=== PATIENT | female | born 2000 | race Caucasian/White ===

== ENCOUNTER → 2018-02-20 | Outpatient (CLI) | payer OTHER ==
--- NOTE | 2018-02-20 15:09 | DIAGNOSTIC IMAGING REPORT ---
MRI OF THE LUMBAR SPINE WITHOUT IV CONTRAST CLINICAL HISTORY: Right leg numbness. COMPARISON STUDY: No priors. TECHNIQUE: MRI of the lumbar spine is performed utilizing various T1 and T2-weighted sequences in the axial and sagittal planes. IV contrast was not administered for this examination. FINDINGS: Lumbar spine: Vertebral body height and alignment are maintained throughout the lumbar spine. Normal marrow signal intensity is preserved throughout the visualized bony structures. The transverse and spinous processes are intact. There is no evidence of spondylolysis. Intervertebral discs: Mild degenerative disc desiccation is seen at L4-L5. The remaining discs are normal in height and signal intensity. Spinal cord: The visualized spinal cord is normal in morphology and signal intensity. The conus medullaris terminates at the level of T12. The nerve roots of the cauda equina are normal in morphology. L1-L2: Unremarkable. L2-L3: Unremarkable. L3-L4: Unremarkable. L4-L5: There is minimal disc bulge eccentric to the right. This causes mild right-sided subarticular stenosis and likely abuts the exiting right L4 and the transiting right L5 nerve roots. The central canal and neural foramina are patent. L5-S1: Unremarkable. Sacrum: The partially imaged sacrum is normal in morphology and signal intensity. Soft tissues: The paraspinous soft tissues are normal in appearance. The partially imaged retroperitoneal structures are grossly unremarkable but incompletely assessed. IMPRESSION: 1. There is no disc herniation, central canal stenosis, or significant neural foraminal stenosis identified throughout the lumbar spine. 2. No osseous abnormality is identified. 3. Mild degenerative disc disease at L4-L5 which may abut the exiting right L4 and transiting right L5 nerve roots. See above discussion. Dictated: 02/20/2018 2:34 PM Transcribed: 02/20/2018 3:09 PM [place] Electronically signed by: Jarad Roman M.D. 02/20/2018 3:19 PM Dictated Date/Time: 02/20/2018 2:34 PM
== END | disposition home or self-care (01) ==
LOC: C.MRI 13:41
PROVIDERS: ATTEND Registered Nurse
DX: M51.26 Other intervertebral disc displacement, lumbar region (principal)